=== PATIENT | male | born 1935 | race Hispanic/Latino ===

== ENCOUNTER 2016-02-23 14:17 | Outpatient (CLI) | payer MEDICARE ==
--- NOTE | 2016-02-23 15:27 | XRay Report ---
Lumbar spine series: Degenerative spondylosis is present throughout the lumbar spine but most severely between L3 and S1. There is mild retrolisthesis of L3 on L4. There is significant narrowing of the L4-5 and L5-S1 disc spaces. There is minimal narrowing at L3-4. There may be mild narrowing of the apophyseal joint at L5-S1 joint otherwise appear relatively well preserved and aligned. The bones are well-mineralized. There is good preservation of vertebral height. Impressions: Degenerative lumbar spine and disc changes as detailed above predominantly from L3-S1.
== END 2016-02-23 14:18 | disposition home or self-care (01) ==
LOC: SPVIMAG 14:17
PROVIDERS: ATTEND Internal Medicine
DX: M47.897 Other spondylosis, lumbosacral region (principal)
CPT/HCPCS: 72110